=== PATIENT | female | born 1935 | race Two or more races ===

== ENCOUNTER → 2020-03-15 | Outpatient (CLI) | payer OTHER | END | disposition home or self-care (01) | LOC: OFIC 805 14:30 | PROVIDERS: ATTEND Otolaryngology Otology & Neurotology | DX: T16.2XXA Foreign body in left ear, initial encounter (principal); H92.02 Otalgia, left ear; H91.13 Presbycusis, bilateral ==

== ENCOUNTER 2020-05-28 10:12 | Outpatient (CLI) | payer OTHER | END 2020-05-28 10:52 | disposition home or self-care (01) | LOC: OFIC 805 10:12 | PROVIDERS: ATTEND Otolaryngology Otology & Neurotology | DX: H61.21 Impacted cerumen, right ear (principal) ==